=== PATIENT | male | born 1990 | race African-American/Black ===

== ENCOUNTER 2024-02-22 00:01 | Emergency (ER) | payer OTHER ==
[2024-02-22 02:01] LABS: #Basophils 0.03 10x3/uL (0.0-0.2); #Eosinphils 0.28 10x3/uL (0.0-0.5); #Monocytes 1.19 10x3/uL (0.0-1.1); #Neutrophils 3.24 10x3/uL (1.5-8.4); %Basophils 0.5 % (0.0-2.0); %Eosinophils 4.5 % (0.0-6.0); %Monocytes 19.3 % (0.0-10.0); %Neutrophils 52.5 % (40.0-75.0); Hemoglobin 13.8 g/dL (13.5-17.5); Mean Corpuscular HGB CONC 31.4 g/dL (32.0-36.0); Mean Corpuscular Hemoglobin 25.7 pg (27.0-33.0); Mean Corpuscular Volume 81.9 fL (81.2-95.1); Mean Platelet Volume 10.1 fL (7.4-10.4); Platelet Count 265 10x3/uL (150-450); RBC Distribution Width 16.7 % (11.5-14.5); Red Blood Cell (RBC) Count 5.37 10x6/uL (4.32-5.72); Troponin I Less than 0.010 ng/mL (< 0.028); White Blood Cell (WBC) Count 6.2 10x3/uL (3.5-10.5)
[2024-02-22] MEDS ORDERED: Ketorolac Tromethamine 30 MG (1 mL) VIAL ONE (04:44)
[2024-02-22] MEDS ORDERED: Iopamidol 370 76% 100 ML VIAL ONE (09:24)
== END 2024-02-22 04:54 ==
LOC: CSHERS 00:01 → EEVIPCON 00:01 → CSHERS 04:54
DX: R07.81 Pleurodynia (principal)
CPT/HCPCS: 71275; 83880; 84484; 85025; 85379; 93005; 96374; J1885; Q9967